=== PATIENT | female | born 1960 | race African-American/Black ===

== ENCOUNTER 2017-02-14 15:31 | Emergency (ER) | payer MEDICAID ==
[~2017-02-14] VITALS: Ht 167.6 cm; Wt 91.0 kg
[2017-02-14] MEDS ORDERED: ONDANSETRON HCL 4MG/2ML VIAL IV ONE (16:15)
[2017-02-14] MEDS ORDERED: MORPHINE SULFATE 4 MG/ML CPJ (NOT FOR IM USE) IV ONE (16:15)
[2017-02-14 16:34] LABS: BASOPHILS % 0.7 % (0.0-2.0); EOSINOPHILS % 0.5 % (0.0-5.0); HEMATOCRIT. 41.4 % (36.0-48.0); HEMOGLOBIN. 13.6 g/dL (12.0-16.0); LYMPHOCYTES % 14.7 % (20.0-50.0); MEAN CORPUSCULAR HEMOGLOBIN 28.3 pg (28.0-32.0); MEAN CORPUSCULAR HGB CONC 32.9 g/dL (31.0-37.0); MEAN CORPUSCULAR VOLUME 86.1 fL (81.0-99.0); MEAN PLATELET VOLUME 7.7 fl (7.4-10.4); MONOCYTES % 5.9 % (2.0-8.0); NEUTROPHILS % 78.2 % (40.0-76.0); PLATELET 323 x1000/uL (130-400); RED BLOOD CELL COUNT 4.81 mill/uL (4.2-5.4); RED CELL DISTRIBUTION WIDTH 13.6 % (11.6-14.6); WHITE BLOOD COUNT 12.7 x1000/uL (4.5-11.0)
[2017-02-14 16:35] LABS: CHLORIDE 108 mEq/L (98-107); INDEX HEMOLYSI 1 (1-3); INDEX ICTERIC 1 (1-4); INDEX LIPEMIC 1 (1-3)
[2017-02-14 16:39] LABS: ALBUMIN 3.9 g/dL (3.4-5.0); ANION GAP 11; CALCIUM 9.3 mg/dL (8.5-10.1); CARBON DIOXIDE 26 mEq/L (21-32); LIPASE 109 IU/L (73-393); UREA NITROGEN BLOOD 17 mg/dL (7-21)
[2017-02-14 16:41] LABS: ALANINE AMINOTRANSFERASE 19 IU/L (13-61); eGFR 56 mL/min (>60)
[2017-02-14 16:45] LABS: HCG SCREEN NEGATIVE
[2017-02-14 17:18] LABS: CLARITY URINE CLOUDY (CLEAR); COLOR URINE DARK YELLOW (YELLOW); GLUCOSE URINE NEGATIVE (NEGATIVE); KETONES URINE TRACE (NEGATIVE); LEUKOCYTE ESTERASE URINE 1+ (NEGATIVE); NITRITE URINE NEGATIVE (NEGATIVE); OCCULT BLOOD URINE NEGATIVE (NEGATIVE); PROTEIN URINE 2+ (NEGATIVE)
[2017-02-14 17:44] LABS: RBC URINE 0-2 /hpf (0-2)
[2017-02-14 17:48] LABS: BACTERIA URINE 2+
[2017-02-14 17:49] LABS: HYALINE CASTS URINE 0-5 /lpf; MUCUS URINE 2+ /lpf (< = 2+)
[2017-02-14 17:50] LABS: SQUAMOUS EPITHELIAL CELL URINE FEW /lpf (RARE/1+)
[2017-02-14 19:41] VITALS: BP 136/77
== END 2017-02-14 19:43 | disposition home or self-care (01) ==
LOC: ER 15:31
DX: D25.9 Leiomyoma of uterus, unspecified (principal); K57.92 Diverticulitis of intestine, part unspecified, without perforation or abscess without bleeding; N39.0 Urinary tract infection, site not specified
CPT/HCPCS: 36415; 71010; 74176; 76856; 80053; 81001; 83690; 84703; 85025; 96374; 96375; 99285; J2270; J2405

== ENCOUNTER 2018-05-08 13:59 | Emergency (ER) | payer MEDICAID ==
[~2018-05-08] VITALS: Ht 167.6 cm; Wt 78.0 kg
[2018-05-08] MEDS ORDERED: HYDROCODONE/ACETAMINOPHEN 5/325MG TABLET PO ONE (14:45)
[2018-05-08] MEDS ORDERED: KETOROLAC 60MG/2ML VIAL IM ONE (14:45)
[2018-05-08 17:00] VITALS: BP 155/81
== END 2018-05-08 17:34 | disposition home or self-care (01) ==
LOC: ER 14:18
DX: S39.012A Strain of muscle, fascia and tendon of lower back, initial encounter (principal); S93.401A Sprain of unspecified ligament of right ankle, initial encounter; F17.200 Nicotine dependence, unspecified, uncomplicated; I10 Essential (primary) hypertension; W01.0XXA Fall on same level from slipping, tripping and stumbling without subsequent striking against object, initial encounter; Y93.89 Activity, other specified; Y92.89 Other specified places as the place of occurrence of the external cause; Y99.8 Other external cause status
CPT/HCPCS: 72131; 73610; 73630; 96372; 99284; J1885